=== PATIENT | female | born 1995 | race Caucasian/White ===

== ENCOUNTER 2019-07-15 18:13 | Inpatient (IN) ==
[2019-07-15] MEDS ORDERED: PEPCID PO ONE (19:17)
[2019-07-15] MEDS ORDERED: KEFZOL 1 GM/D5W 1 GM/50 ML IVPB IV PRN (19:17)
[2019-07-15] MEDS ORDERED: PEPCID IV PRN (19:17)
[2019-07-15] MEDS ORDERED: REGLAN PO ONE (19:17)
[2019-07-15] MEDS ORDERED: STADOL IV PRN (19:17)
[2019-07-15] MEDS ORDERED: PEPCID PO PRN (19:17)
[2019-07-15] MEDS ORDERED: ZOFRAN IV PRN (19:17)
[2019-07-15] MEDS ORDERED: TYLENOL PO PRN (19:17)
[2019-07-15] MEDS ORDERED: SODIUM CHLORIDE 0.9% INJ SCH (19:30)
[2019-07-15] MEDS ORDERED: LR 1,000 ML IV SCH (19:30)
[2019-07-15 20:19] LABS: URINE SOURCE VOIDED
[2019-07-15 20:27] LABS: BILIRUBIN URINE NEGATIVE (NEGATIVE); BLOOD URINE 2+ (NEGATIVE); CLARITY CLEAR (CLEAR); COLOR YELLOW; GLUCOSE URINE NEGATIVE (NEGATIVE); KETONE URINE NEGATIVE (NEGATIVE); LEUKOCYTES URINE 2+ (NEGATIVE); NITRITE URINE NEGATIVE (NEGATIVE); PROTEIN URINE NEGATIVE (NEGATIVE); UROBILINOGEN URINE NORMAL
[2019-07-15] MEDS: LR 1,000 ML IV SCH (20:30)
[2019-07-15 20:35] LABS: UR AMPHETAMINES QUAL NONE DETECTED (NONE DETECT); UR BARBITUATES QUAL NONE DETECTED (NONE DETECT); UR BENZODIAZEPIN QUAL NONE DETECTED (NONE DETECT); UR CANNABINOIDS QUAL NONE DETECTED (NONE DETECT); UR COCAINE QUAL NONE DETECTED (NONE DETECT); UR METHADONE QUAL NONE DETECTED (NONE DETECT); UR METHAMPHETAMINE QUAL NONE DETECTED (NONE DETECT); UR OPIATES QUAL NONE DETECTED (NONE DETECT); UR OXYCODONE QUAL NONE DETECTED (NONE DETECT); UR PCP QUAL NONE DETECTED (NONE DETECT); UR PROPOXYPHENE QUAL NONE DETECTED (NONE DETECT); UR TCA QUAL NONE DETECTED (NONE DETECT)
[2019-07-15 20:43] LABS: BASO# 0.02 X1000 (0.0-0.2); BASO% 0.2 % (0.0-0.8); EOS# 0.05 X1000 (0.0-0.7); EOS% 0.4 % (0.0-10.0); HEMATOCRIT 35.4 % (37.0-47.0); HEMOGLOBIN 12.1 g/dL (12.0-16.0); IMM GRAN# 0.08 X1000 (0.0-0.04); IMM GRAN% 0.7 % (0.0-0.5); LYMPH# 1.57 X1000 (1.2-3.4); LYMPH% 13.3 % (20.5-51.1); MCH 30.3 PG (27-31); MCHC 34.2 g/dL (33-37); MCV 88.5 FL (81-99); MONO# 0.87 X1000 (0.11-0.59); MONO% 7.4 % (1.7-9.3); MPV 11.1 FL (7.4-10.4); NEUT# 9.21 X1000 (1.4-6.5); PLT 239 X1000 (130-400); RDW 13.3 % (11.5-14.5)
[2019-07-15] MEDS ORDERED: PITOCIN 30 UNITS/NS 30 UNIT/500 ML IV.SOLN IV SCH (21:00)
[2019-07-16] MEDS: LR 1,000 ML IV SCH ×2 (00:42→06:59)
[2019-07-16] MEDS ORDERED: FENTANYL-BUPIV-NS 2 MCG-0.1% 250 ML EPIDURAL SCH (01:00)
[2019-07-16] MEDS ORDERED: FENTANYL IV ONE (01:00)
[2019-07-16] MEDS ORDERED: MINERAL OIL TOP PRN (01:02)
[2019-07-16] MEDS ORDERED: XYLOCAINE-MPF 1% INJ PRN ×2 (01:02→11:09)
[2019-07-16] MEDS: NAROPIN 0.2% INJ ONE ×2 (01:58→07:54)
[2019-07-16] MEDS ORDERED: NEO-SYNEPHRINE ONE (02:18)
--- NOTE | 2019-07-16 04:57 | HISTORY AND PHYSICAL ---
HISTORY OF PRESENT ILLNESS: A 23-year-old, G1, P0, at 40 weeks gestational age by LMP, consistent with a second-trimester ultrasound, admitted for elective induction of labor. This is a patient of Dr. Torres. Upon admission, patient was noted to be regularly heaven with her cervix 3 cm dilated. The patient reports of intermittent cramping, but denied of any vaginal bleeding or leakage of fluid. The patient feels the baby move. The patient denied of any other complaints. PAST MEDICAL HISTORY: Denied. PAST SURGICAL HISTORY: Denied. OBSTETRICAL HISTORY: . Father of baby not involved in the . GYNECOLOGIC HISTORY: Denied history of STDs or HIV. Denied of any abnormal Pap smears. Reports last Pap was normal, done during this . MEDICATIONS: vitamins. ALLERGIES: No known drug allergies. SOCIAL HISTORY: Reports history of tobacco use, stopped earlier this year. Denied alcohol or illicit drug use during . FAMILY HISTORY: Noncontributory. REVIEW OF SYSTEMS: Negative. PHYSICAL EXAMINATION: VITAL SIGNS: Temperature 96.9 degrees, heart rate 87, respirations 18, blood pressure 108/59, BMI 31.2. GENERAL: No apparent distress. CARDIOVASCULAR: Regular rate and rhythm. PULMONARY: Clear to auscultated bilaterally. ABDOMEN: Soft, nontender to palpation and gravid. EXTREMITIES: No lower extremity tenderness to palpation. SVE: 4 cm dilated, 70%, effacement, and -2 station. heart tracings: 120s baseline, moderate variability. Accelerations present, no apparent decelerations. Tocometer: Contractions every 3 to 5 minutes. Bedside ultrasound: cephalic presentation, anterior placenta Labs: Rh positive, antibody negative, rubella immune. One-hour glucose tolerance test 106. Gonorrhea negative. Chlamydia negative. Hep B surface antigen negative. HIV antibody screen negative. Quad screen negative. RPR nonreactive. Pap smear 02/01/2019 is negative. Hemoglobinopathy screen negative, normal adult hemoglobin. Hep C antibody negative. Varicella IgG immune. GBS negative. Laboratory: Hemoglobin 12.1, hematocrit 35.4, platelets 239,000. RPR nonreactive. UDS unremarkable. ASSESSMENT AND PLAN: A 23-year-old, , at 40 weeks gestational age by LMP consistent with a 2nd trimester ultrasound with: 1. Latent labor. - well being: Cat 1 tracings -Plan for expectant management -Augment labor with Pitocin as clinically indicated. Risks and benefits of Pitocin use discussed with the patient. -Risks of vaginal delivery discussed with the patient, including risks of bleeding, infection, lacerations, need for repair, episiotomy, use of vacuum and/or forceps (with risks and benefits of each discussed in depth with patient), and urgent/emergent section (with risks of discussed in depth with the patient). The patient expressed understanding. All questions answered. [facility]ITAL[facility]ul[facility]
[2019-07-16] MEDS ORDERED: SODIUM CHLORIDE 0.9% 10 ML ONE ×2 (08:07→09:43)
[2019-07-16] MEDS ORDERED: XYLOCAINE-MPF 2% ONE ×2 (08:07→09:43)
--- NOTE | 2019-07-16 08:41 | OB/GYN PROGRESS NOTE ---
Progress Note OB - . OB Progress Note: Vital Signs - 24 hr 07/15/19 20:22 Temperature 96.9 F L Pulse Rate 87 Respiratory Rate 18 Blood Pressure 108/59 O2 Sat by Pulse Oximetry 96 Laboratory Results - last 24 hr 07/15/19 07/15/19 07/15/19 18:20 18:20 20:10 WBC RBC Hgb Hct MCV MCH MCHC RDW Std Deviation Plt Count MPV Immature Gran % (Auto) Neut % (Auto) Lymph % (Auto) Russell % (Auto) Eos % (Auto) Baso % (Auto) Immature Gran # (Auto) Neut # (Auto) Lymph # (Auto) Russell # (Auto) Eos # (Auto) Baso # (Auto) Urine Source VOIDED Urine Color YELLOW Urine Clarity CLEAR Urine pH 7.0 Ur Specific [place] 1.000 Urine Protein NEGATIVE Urine Ketones NEGATIVE Urine Blood 2+ A Urine Nitrite NEGATIVE Urine Bilirubin NEGATIVE Urine Urobilinogen NORMAL Urine WBC 2+ A Urine Glucose NEGATIVE Urine Opiates Screen NONE DETECTED Ur Oxycodone Screen NONE DETECTED Urine Methadone Screen NONE DETECTED U Propoxyphene Qual NONE DETECTED Ur Barbituates Screen NONE DETECTED Ur Tricyclics Screen NONE DETECTED Ur Phencyclidine Scrn NONE DETECTED Ur Amphetamines Screen NONE DETECTED U Methamphetamines Scrn NONE DETECTED U Benzodiazepines Scrn NONE DETECTED Urine Cocaine Screen NONE DETECTED U Cannabinoids Screen NONE DETECTED RPR NON-REACTIVE Blood Type Antibody Screen 07/15/19 07/15/19 20:10 20:10 WBC 11.80 H RBC 4.00 L Hgb 12.1 Hct 35.4 L MCV 88.5 MCH 30.3 MCHC 34.2 RDW Std Deviation 13.3 Plt Count 239 MPV 11.1 H Immature Gran % (Auto) 0.7 H Neut % (Auto) 78.0 H Lymph % (Auto) 13.3 L Russell % (Auto) 7.4 Eos % (Auto) 0.4 Baso % (Auto) 0.2 Immature Gran # (Auto) 0.08 H Neut # (Auto) 9.21 H Lymph # (Auto) 1.57 Russell # (Auto) 0.87 H Eos # (Auto) 0.05 Baso # (Auto) 0.02 Urine Source Urine Color Urine Clarity Urine pH Ur Specific [place] Urine Protein Urine Ketones Urine Blood Urine Nitrite Urine Bilirubin Urine Urobilinogen Urine WBC Urine Glucose Urine Opiates Screen Ur Oxycodone Screen Urine Methadone Screen U Propoxyphene Qual Ur Barbituates Screen Ur Tricyclics Screen Ur Phencyclidine Scrn Ur Amphetamines Screen U Methamphetamines Scrn U Benzodiazepines Scrn Urine Cocaine Screen U Cannabinoids Screen RPR Blood Type A POSITIVE Antibody Screen NEGATIVE 23 yo G1 at 40w1d in labor Patient seen and examined. S/p epidural and now comfortable. She denies any vaginal bleeding. Discussed AROM, risk of possible due to cord prolapse or intolerance/non-reassuring heart tones. AROM at 0834 with clear fluid, head well applied to cervix. SVE: . She is heaven on her own, pitocin has not been started for augmentation. FHT:120/moderate/+accel/no decel [place]: Q2-3 minutes Physical Exam-General - PHYSICAL EXAM-ADULT Initial Vital Signs Reviewed: Yes - CONSTITUTIONAL General Appearance: appears well, alert, no apparent distress - EYES Eyes: PERRL/EOMI - RESPIRATORY Respiratory: lungs clear, normal breath sounds, no respiratory distress - CARDIOVASCULAR Cardiovascular: regular rate, rhythm - GASTROINTESTINAL (ABDOMEN) Abdominal Exam: non tender, soft - GENITOURINARY Female Genitalia/Pelvic Exam: other (SVE: ) - MUSCULOSKELETAL Extremity: other (mild BLE edema) - PSYCHIATRIC Psych/Mental Status: normal mood/affect Assessment/Plan - Assessment/Plan Assessment: 23 yo G1 at 40w1d in labor 1. MF status reassuring, cat 1 tracing 2. S/p AROM, 3. S/p epidural, patient comfortable 4. Anticipate vaginal delivery
[2019-07-16] MEDS ORDERED: PITOCIN 20 UNITS/NS 20 UNITS/1,000 ML IV.SOLN ONE (10:46)
[2019-07-16] MEDS ORDERED: M-M-R II VACCINE SUBQ ONE (11:09)
[2019-07-16] MEDS ORDERED: PERI MEDS (DERMOPLAST/NUPERCAINAL/TUCKS) MISC PRN (11:09)
[2019-07-16] MEDS ORDERED: CYTOTEC PO PRN (11:09)
[2019-07-16] MEDS ORDERED: PERCOCET-5 PO PRN (11:09)
[2019-07-16] MEDS ORDERED: BOOSTRIX VACCINE IM ONE (11:09)
[2019-07-16] MEDS ORDERED: BENADRYL PO PRN (11:09)
[2019-07-16] MEDS ORDERED: AMBIEN PO PRN (11:09)
[2019-07-16] MEDS ORDERED: ATARAX PO PRN (11:09)
[2019-07-16] MEDS ORDERED: MINERAL OIL PO PRN (11:09)
[2019-07-16] MEDS ORDERED: BENADRYL IV PRN (11:09)
[2019-07-16] MEDS ORDERED: HYDROXYZINE IM PRN (11:09)
[2019-07-16] MEDS ORDERED: PITOCIN IM PRN (11:09)
[2019-07-16] MEDS ORDERED: PITOCIN 20 UNITS/NS 20 UNITS/1,000 ML IV.SOLN IV SCH (11:15)
[2019-07-16] MEDS ORDERED: PITOCIN 30 UNITS/NS 30 UNIT/500 ML IV.SOLN IV SCH (11:15)
[2019-07-16] MEDS: MOTRIN PO PRN ×2 (13:49→22:08)
--- NOTE | 2019-07-16 14:17 | OPERATIVE NOTE ---
PROCEDURE DATE: 07/16/2019 DELIVERING PHYSICIAN: Amber Torres DO. PROCEDURE: This is a 23-year-old, G 1, P 0, at 40 weeks and 1 day, who underwent a spontaneous vaginal delivery of a vigorous viable male infant. The 's head delivered in AKANK[place] position. Head, shoulders, and body delivered without difficulty. Patient had a first- degree midline perineal tear. Apgars were 9 and 10. Pediatric nurse was in attendance. Labor was spontaneous and uncomplicated. Placenta delivered manually with a three-vessel cord. A primary midline perineal degree was repaired with 3-0 Vicryl in the usual fashion. Sponge, lap, and needle counts correct. ANESTHESIA: Epidural. ESTIMATED BLOOD LOSS: 150 mL. Pediatric nurses in attendance. Mother stable. [facility]
[2019-07-16] MEDS: PERICOLACE PO SCH (22:09)
[2019-07-17 05:11] LABS: BASO# 0.02 X1000 (0.0-0.2); BASO% 0.2 % (0.0-0.8); EOS# 0.06 X1000 (0.0-0.7); EOS% 0.5 % (0.0-10.0); HEMATOCRIT 32.4 % (37.0-47.0); HEMOGLOBIN 10.7 g/dL (12.0-16.0); IMM GRAN# 0.06 X1000 (0.0-0.04); IMM GRAN% 0.5 % (0.0-0.5); LYMPH# 1.76 X1000 (1.2-3.4); LYMPH% 14.4 % (20.5-51.1); MCH 29.8 PG (27-31); MCV 90.3 FL (81-99); MONO# 1.02 X1000 (0.11-0.59); MONO% 8.4 % (1.7-9.3); MPV 10.6 FL (7.4-10.4); NEUT# 9.26 X1000 (1.4-6.5); PLT 171 X1000 (130-400); RBC 3.59 XMIL (4.2-5.4); RDW 13.5 % (11.5-14.5); WBC 12.18 X1000 (4.8-10.8)
--- NOTE | 2019-07-17 07:00 | OB/GYN PROGRESS NOTE ---
Progress Note OB - . OB Progress Note: Vital Signs - 24 hr 07/16/19 10:15 07/16/19 10:25 07/16/19 10:35 Temperature 98.2 F Pulse Rate 102 H 94 H 94 H Respiratory Rate 20 20 20 Blood Pressure Blood Pressure [Right Arm] 118/69 123/72 119/75 O2 Sat by Pulse Oximetry 98 100 100 07/16/19 10:45 07/16/19 10:55 07/16/19 11:05 Temperature Pulse Rate 87 83 75 Respiratory Rate 20 20 20 Blood Pressure Blood Pressure [Right Arm] 114/73 120/76 118/66 O2 Sat by Pulse Oximetry 100 98 97 07/16/19 11:15 07/16/19 12:11 07/16/19 12:45 Temperature 98.4 F 98 F Pulse Rate 72 73 73 Respiratory Rate 20 20 20 Blood Pressure 112/64 132/70 Blood Pressure [Right Arm] 114/65 O2 Sat by Pulse Oximetry 97 97 97 07/16/19 13:13 07/16/19 14:00 07/16/19 14:15 Temperature 99 F 98.8 F Pulse Rate 73 85 69 Respiratory Rate 20 20 20 Blood Pressure 137/76 114/71 115/60 Blood Pressure [Right Arm] O2 Sat by Pulse Oximetry 98 987 H 98 07/16/19 15:26 07/16/19 20:00 07/17/19 03:42 Temperature 97.3 F L 97.0 F L 98.0 F Pulse Rate 78 75 76 Respiratory Rate 20 18 18 Blood Pressure 112/67 124/67 119/61 Blood Pressure [Right Arm] O2 Sat by Pulse Oximetry 97 96 95 Laboratory Results - last 24 hr 07/17/19 04:48 WBC 12.18 H RBC 3.59 L Hgb 10.7 L Hct 32.4 L MCV 90.3 MCH 29.8 MCHC 33.0 RDW Std Deviation 13.5 Plt Count 171 MPV 10.6 H Immature Gran % (Auto) 0.5 Neut % (Auto) 76.0 H Lymph % (Auto) 14.4 L [place] % (Auto) 8.4 Eos % (Auto) 0.5 Baso % (Auto) 0.2 Immature Gran # (Auto) 0.06 H Neut # (Auto) 9.26 H Lymph # (Auto) 1.76 [place] # (Auto) 1.02 H Eos # (Auto) 0.06 Baso # (Auto) 0.02 23yo PPD#1 s/p at 40w1d Patient seen and examined. No complaints this AM, resting well. Pain is controlled. She notes normal lochia. She is tolerating a regular diet, denies nausea/vomiting. She is ambulating and voiding without difficulty. She plans for IUD for pp contraception. She is bottlefeeding. She had a boy. She desires circumcision. Physical Exam-General - PHYSICAL EXAM-ADULT Initial Vital Signs Reviewed: Yes - CONSTITUTIONAL General Appearance: appears well, alert, no apparent distress - EYES Eyes: PERRL/EOMI - HEAD, EARS, NOSE, MOUTH & THROAT HENMT: normocephalic/atraumatic - RESPIRATORY Respiratory: lungs clear, normal breath sounds, no respiratory distress - CARDIOVASCULAR Cardiovascular: regular rate, rhythm - GASTROINTESTINAL (ABDOMEN) Abdominal Exam: normal bowel sounds, non tender, soft (fundus firm, below umbilicus) - MUSCULOSKELETAL Extremity: normal range of motion, non-tender, pedal edema - PSYCHIATRIC Psych/Mental Status: normal mood/affect Assessment/Plan - Assessment/Plan Assessment: 23 yo PPD#1 s/p at 40w1d 1. HD stable, afebrile, PP hgb 10.7 2. Routine PP care 3. Encourage ambulation 4. Plans for Mirena for PP contraception 5. Desires infant circumcision
[2019-07-17] MEDS: PERICOLACE PO SCH (21:53)
--- NOTE | 2019-07-18 11:19 | OB/GYN PROGRESS NOTE ---
Progress Note OB - . Patient Problems: Current Active Problems Problem Status Onset (spontaneous vaginal delivery) Acute OB Progress Note: Vital Signs - 24 hr 07/17/19 12:10 07/17/19 16:42 07/17/19 20:00 Temperature 97.3 F L 98.1 F 97.7 F Pulse Rate 73 72 72 Respiratory Rate 16 16 18 Blood Pressure 111/61 126/58 118/71 O2 Sat by Pulse Oximetry 96 97 97 07/18/19 06:15 Temperature 97.7 F Pulse Rate 60 Respiratory Rate 20 Blood Pressure 111/54 O2 Sat by Pulse Oximetry 98 S: Patient without complaints. Denied fever, chills, N/V, SOB, or chest pain. Pain minimal and controlled. Voiding without difficulty. Lochia decreasing; scant. Formula-feeding by choice. Desires IUD for contraception. O: Gen: NAD CV: RRR Pulm: CTAB; no rhonchi, wheezing, or rales Abd: soft, non TTP, non distended; active bowel sounds; fundus firm and below umbilicus Ext: no LE TTP Labs: reviewed A&P: 23yo s/p at 40w1d, 1. PPD#2 -No concerns -D/C home today -F/u in clinic with Dr. Torres in 2 and 6 weeks - precautions given and when to call clinic
[2019-07-18 11:28] VITALS: BP 120/68
[2019-07-18] MEDS ORDERED: FLU VACCINE IM ONE (11:47)
--- NOTE | 2019-07-19 07:05 | DISCHARGE SUMMARY ---
ADMISSION DATE: 07/15/2019 DISCHARGE DATE: 07/18/2019 DISCHARGE DIAGNOSES: This is a 23-year-old G1, P1-0-0-1, status post spontaneous vaginal delivery at 40 weeks and 1 day. HOSPITAL COURSE: This is a 23-year-old, now G1, P1-0-0-1, that was admitted for late labor. The patient's primary synthetic department supervisor is Dr. Torres. The patient's labor course was unremarkable. She had a spontaneous vaginal delivery on 07/16/2019. The patient delivered a male at 40 weeks and 1 day. Apgars 9 and 10 at 1 and 5 minutes respectively. Baby's weight 7 pounds 10 ounces. course was complete without complications. Patient was formula feeding by personal choice. Patient desired an IUD for contraception. The patient was subsequently discharged on day #2. precaution was given and was told to follow up with Dr. Torres in approximately 2 weeks. LABORATORY DATA: Pre-delivery hemoglobin and hematocrit 12.1/35.4, post 10.7/32.4. UDS negative. RPR nonreactive. DISCHARGE DIET: Regular. DISCHARGE DISPOSITION: Stable. DISCHARGE MEDICATIONS: Ibuprofen 800 mg 1 tab q.8 hours p.r.n. pain. Aga-Colace 1 tab at bedtime p.r.n. constipation. The patient was also told to continue her vitamins.
== END 2019-07-18 14:07 | disposition home or self-care (01) | DRG 807 ==
LOC: OBSVTOIN 18:13 → INTOOBSV 18:13 → P.LD 18:13 → P.MEDSURG 07-17 22:04
PROVIDERS: ADMIT Student in an Organized Health Care Education/Training Program; ATTEND Student in an Organized Health Care Education/Training Program